=== PATIENT | male | born 1980 | race Two or more races ===

== ENCOUNTER 2024-12-31 19:40 | Emergency (ER) | payer OTHER, SELFPAY ==
--- OUTSIDE RECORDS SUMMARY | 2024-12-31 19:49 | XMS_ITS | Encounter Summary ---
Author Organization [employer] Address [id number] [address] [place] [address] Care Team Providers Care Teletype Adjuster Name Role Phone Jason Enriquez Primary Care Provider [phone] Encounter Details Date Type Department Care Team (Late st Contact Info) Description 06/24/2023 Orders Only [facility] Internal Medicine - Family Medicine [address] [place] [id number] Laura Segovia, MARINE SCIENTIST-EMBLEM CUTTER [address] [facility] [address] [place], [place] [id number] Rupture of right biceps tendon, initial encounter Social History Tobacco Use Types Packs/Day Years Used Date Smoking Tobacco: Never Smokeless Tobacco: Current Chew Alcohol Use Standard Drinks/Week Comments Yes 0 (1 standard drink = 0.6 oz pur e alcohol) Ocassional Social Connection and Isolat ion Panel [NHANES] Answer Date Recorded In a typical week, how many times do you talk on the phone with family, friends, or neighbors? More than three times a week 12/16/2022 How often do you get togethe r with friends or relatives? More than three times a week 12/16/2022 How often do you attend chur ch or yazidi services? More than 4 times per year 12/16/2022 Do you belong to any clubs o r organizations such as restoration groups, unions, fraternal or athletic groups, or school groups? Yes 12/16/2022 How often do you attend meet ings of the clubs or organizations you belong to? More than 4 times per year 12/16/2022 Are you , , di vorced, , never , or living with a partner? 12/16/2022 AUDIT-C Answer Date Recorded Q1: How often do you have a drink containing alc ohol? 2-3 times a week 12/16/2022 Q2: How many drinks containi ng alcohol do you have on a typical day when you are drinking? 3 or 4 12/16/2022 Q3: How often do you have si x or more drinks on one occasion? Weekly 12/16/2022 Overall Financial Resource Strain (CARDIA) Answe r Date Recorded How hard is it for you to pa y for the very basics like food, housing, medical care, and heating? Not hard at all 12/16/2022 PHQ-2 Answer Date Recorded Total Score 0 02/14/2023 [facility] Occup[facility] - Occupational Stress Questionnaire Answer Date Recorded Do you feel stress - tense, restless, nervous, or anxious, or unable to sleep at night because your mind is troubled all the time - these days? Not at all 12/16/2022 Exercise Vital Sign Answer Date Recorde d On average, how many days pe r week do you engage in moderate to strenuous exercise (like a brisk walk)? 5 days 12/16/2022 On average, how many minutes do you engage in exercise at this level? 30 min 12/16/2022 PRAPARE - Transportation Answer Date Re corded In the past 12 months, has l ack of transportation kept you from medical appointments or from getting medications? No 12/03 In the past 12 months, has l ack of transportation kept you from meetings, work, or from getting things needed for daily living? No 12/16/2022 Housing Instability Answer Date Recorde d Are you worried or concerned that in the next two months you may not have stable housing that you own, rent or stay in as a part of a household? No 12/16/2022 Childcare Answer Date Recorded Do problems getting child ca re make it difficult for you to work or study? No 12/16/2022 Employment Answer Date Recorded Do you need help finding a l ocal career center and/or a training program? No 12/16/2022 Hunger Screening Answer Date Recorded Within the past 12 months we worried whether our food would run out before we got money to buy more. Never True 02/14/2023 Within the past 12 months th e food we bought just didn't last and we didn't have money to get more. Never True 02/14/2023 Purpose - Life Answer Date Recorded I have a purpose and direction in my life. Stron gly Agree 12/16/2022 Sex and Gender Information Value Date Recorded Sex Assigned at Not on file Legal Sex Male 11:35 AM EDT Gender Identity Not on file Sexual Orientation Not on file documented as of this encounter Plan of Treatment Not on file documented as of this encounter Procedures Procedure Name Priority Date/Time Associated Diagnosis Comments AMB REFERRAL TO ORTHOPEDIC SURGERY Routine 03/22/2023 12:08 PM EST Rupture of right biceps tendon, initial encounter documented in this encounter Results * Ambulatory referral to Orthopedic Surgery (03/22/2023 12:08 PM EST) us Laura Segovia MARINE SCIENTIST-EMBLEM CUTTER OUTPATIENT REFERRAL ORDERAB LES Final Result MANUALLY TRANSCRIBED RESULTS documented in this encounter Visit Diagnoses Diagnosis Rupture of right biceps tendon, initial encounter documented in this encounter Additional Health Concerns Assessment Noted Time PHQ-9 Depression Total Score: 0 02/15/20 8:31 AM EST documented as of this encounter Care Teams Teletype Adjuster Relationship Specialty Start Date End Date Jason Enriquez DO [address], [facility] [place] [address] PCP - General Family Medicine 12/23/22 documented as of this encounter
--- OUTSIDE RECORDS SUMMARY | 2024-12-31 19:49 | XMS_ITS | Clinical Summary ---
Author Organization [employer] [facility] Address [id number] [address] [place] [address] Care Team Providers Care Environmental Solutions Engineer Name Role Phone Jason Enriquez Primary Care Provider Allergies No known active allergies Medications No known medications Active Problems No known active problems Family History Medical History Relation Name Comments No Known Problems Father No Known Problems Mother Relation Name Status Comments Father Alive Mother Alive Social History Tobacco Use Types Packs/Day Years Used Date Smoking Tobacco: Never Smokeless Tobacco: Current Chew Tobacco Cessation:Ready to Q uit: No; Counseling Given: Yes Alcohol Use Standard Drinks/Week Comments Yes 0 [...] 12/16/2022 How often do you attend chur or rastafari services? More than 4 times per year 12/16/2022 Do you belong to any clubs o r organizations such as adventism groups, unions, fraternal or athletic groups, or [...] Answer Date Recorded Total Score 0 02/14/2023 [facility] Answer Date Recorded [...] Do you need help finding a l al career center and/or a training program? No [...] on file Sexual Orientation Not on file Last Filed Vital Signs Vital Sign Reading Time Taken Comments Blood Pressure 118/78 02/14/2023 8:32 AM EST Pulse 66 02/14/2023 8:32 AM EST Temperature 36.3 C (97.4 F) 02/14/2023 8:32 AM EST Respiratory Rate - - Oxygen Saturation 98% 02/14/2023 8:32 AM EST Inhaled Oxygen Concentration - - Weight 86.3 kg (190 lb 3.2 oz) 02/14/2023 8:32 A M EST Height 167.6 cm (5' 6 ) 02/14/2023 8:32 AM EST Body Mass Index 30.7 02/14/2023 8:32 AM EST Plan of Treatment Health Maintenance Due Date Last Done Comments Adult BMI Screening 02/15/2024 02/14/2023 Depression Screening 02/15/2024 02/14/2023 Tobacco Screening 02/15/2024 02/14/2023 Influenza Vaccine 12/03/2024 04/01/2009 DTaP,Tdap and Td Vaccines (2 - Td or Tdap) 11/23/2027 11/22/2017 Medical Devices Not on file Insurance [employer] Member Subscriber Plan / Payer (Ef fective 2022-Present) Name:Rebel Langley Relation to Subscriber:Self Name:Rebel Langley Payer ID:Not on file Type:Not on file Address: [facility] [address] [place] [id number] Care Teams Environmental Solutions Engineer Relationship Specialty Start Date End Date Jason Enriquez DO [address] [facility] [place] [id number] PCP - General Family Medicine 12/23/22
[2024-12-31 19:57] VITALS: BP 134/80; PULSE 79; TEMP 36.7; O2SAT 98; BMI 30.9
--- NOTE | 2024-12-31 20:08 | XR_ITS ---
[address] [address] Patient Name: BAKARI AMIN MRN: [id number] date: 1980 Sex: M Assigned Patient Location: ER Current Patient Location: ER Accession/Order Number: [id number] Exam Date: 12/31/2024 20:21 Report Date: 12/31/2024 21:01 At the request of: CAROL MIRELES MD Procedure: XR elbow RT min 3V 3 views rightelbow plain film COMPARISON :None HISTORY: Olecranon redness and soft tissue swelling. ACUTE FINDINGS: None DEGENERATIVE CHANGE: Unremarkable SOFT TISSUE FINDINGS: Olecranon soft tissue swelling. No subcutaneous air. No radiodense foreign body. JOINT EFFUSION: None POSTOP CHANGES: None BONE MINERALIZATION: Adequate XR/XR elbow RT min 3V IMPRESSION: Olecranon soft tissue swelling/bursitis. Impression dictated by: Lino Sauceda M.D. 12/31/2024 9:01 PM Dictation Location: [place] [address] Electronically authenticated by: [id number] Y Date: 12/31/2024 21:01
--- NOTE | 2024-12-31 20:09 | ED_ITS ---
HPI - Extremity Problem General Chief complaint: Extremity Problem, Nontraumatic Stated complaint: Extremity Injury, Upper Time Seen by Provider: 12/31/24 19:56 Source: patient Mode of arrival: walk-in Limitations: no limitations History of Present Illness HPI Narrative: This 44-year-old male who is right-hand dominant presents for evaluation of pain and swelling to the right elbow/olecranon area. He states he woke up last morning and the area was swollen. He states it started aching over the weekend and he cut it open with a razor blade. He states there was some bloody drainage at that time and the swelling did decrease. Since that time the swelling has returned and he has some degree of pain with extension of the arm. He has some mild erythema onto the lateral forearm area. There is no drainage from this area at this time. He states it was bothering him again this morning so he poked it with a needle. He took ibuprofen this morning but decided he was not going to open it up again instead came to the emergency department. He has not had any fever. There is no lymphangitic streaking. He is not diabetic. He denies any injury to the elbow area but does work in construction mostly putting in windows. Related Data Home Medications ?Medication ?Instructions ?Recorded ?Confirmed No Known Home Medications 12/31/2412/04 Allergies Allergy/AdvReac Type Severity Reaction Status Date / Time No Known Drug Allergies Allergy Verified 12/31/24 20:03 Review of Systems ROS Status of ROS 10 or more systems reviewed and unremark able except as noted in history and below PFSH PFSH Social History Little interest or pleasure in doing things: not at all Feeling down, depressed, or hopeless: not at all Exam Narrative Exam Narrative: Vital signs and Nursing Notes reviewed: Patient is afebrile with a normal pulse, normal blood pressure, he is not hypoxic with pulse ox of 98% on room air General: Awake, alert, oriented, no acute distress, lying comfortably on the stretcher HEENT: Normocephalic atraumatic, mucous membranes are moist and pink, eyes are clear, normal conjunctiva, vision is grossly intact Chest: Lungs are clear to auscultation with good air entry, there is no wheezing rhonchi or rales appreciated no accessory muscle use, patient is speaking in complete sentences-no chest wall tenderness to palpation CVS: Regular rate and rhythm S1-S2, no murmurs rubs or gallops, pulses are brisk and equal bilaterally Extremities: Mild swelling at the olecranon bursa with mild local erythema to the proximal forearm. Patient has full range of motion. There is no lymphangitic streaking. There is no tenderness in the biceps or triceps muscles. No drainage from the olecranon at this area. There are no open areas of skin. Skin: Normal in appearance without rash,pallor, petechiae or purpura Neuro: No focal deficits Constitutional Vital Signs, click to edit/add: Last Vital Signs Temp 98.1 F 12/31/24 19:57 Pulse 79 12/31/24 19:57 Resp 18 12/31/24 19:57 BP 134/80 12/31/24 19:57 Pulse Ox 98 12/31/24 19:57 O2 Del Method Room Air 12/31/24 19:57 Course Vital Signs Vital signs: Vital Signs Temperature 98.1 F 12/31/24 19:57 Pulse Rate 79 12/31/24 19:57 Respiratory Rate 18 12/31/24 19:57 Blood Pressure 134/80 12/31/24 19:57 Pulse Oximetry 98 12/31/24 19:57 Oxygen Delivery Method Room Air 12/31/24 19:57 Temperature 98.1 F 12/31/24 19:57 Pulse Rate 79 12/31/24 19:57 Respiratory Rate 18 12/31/24 19:57 Blood Pressure 134/80 12/31/24 19:57 Pulse Oximetry 98 12/31/24 19:57 Oxygen Delivery Method Room Air 12/31/24 19:57 MDM - Extremity (Nontraumatic) MDM Narrative Medical decision making narrative: This 43-year-old male who is right-hand dominant presents for evaluation of pain and swelling in the olecranon bursa that started last . He opened it up with a razor blade and drained some fluid off of it and states that the fluid was bloody but not purulent. The swelling then went down and recurred and he poked a needle in it earlier today. He has some mild local erythema onto the proximal forearm. There is no sign of any acute septic joint. He does not have a fever or pain with range of motion. X-ray of the extremity does not show any acute findings. Due to the invasive nature of puncturing it twice he will be medicated with Augmentin and discharged home with Augmentin and ibuprofen with referral to outpatient orthopedics. He was encouraged to continue using warm compresses, compression as needed and to not insert or inject anything into the area in the future. I explained to him that he can get a serious infection in his joint if he continues to open it with needles or razor blades. He verbalizes understanding of this. He was medicated with the first dose of Augmentin and a dose of ibuprofen in the emergency department. 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 Discharge Plan Discharge Chief Complaint: Extremity Problem, Nontraumatic Clinical Impression: Bursitis, olecranon Patient Disposition: Home, Self-Care Time of Disposition Decision: 21:04 Condition: Good Prescriptions / Home Meds: No Action No Known Home Medications Print Language: Citizen Of [place] Instructions: Elbow Bursitis (ED) Referrals: DENISE SHELTON [Primary Care Provider, Family Practice] - 1 week Mariano Morrison DO [Physician, Orthopedics] - 1 week
[2024-12-31] MEDS: AMOXICILLIN/POT CLAV 875-125 MG TABLET 1 TAB PO (21:21)
[2024-12-31] MEDS: IBUPROFEN 600 MG TABLET PO (21:21)
== END 2024-12-31 21:30 | disposition home or self-care (01) ==
PROVIDERS: Emergency Provider Emergency Medicine; PCP Family Medicine
DX: M70.21 Olecranon bursitis, right elbow (principal)
CPT/HCPCS: 73080; 99283